=== PATIENT | female | born 1950 | race Caucasian/White ===

== ENCOUNTER 2016-06-19 13:07 | Emergency (ER) | payer OTHER ==
[~2016-06-19] VITALS: Ht 162.6 cm; Wt 75.0 kg
[2016-06-19 13:21] VITALS: BP 128/91
[2016-06-19] MEDS ORDERED: MICARDIS80 MG PO (13:30)
[2016-06-19] MEDS ORDERED: CRESTOR5 MG PO (13:30)
[2016-06-19] MEDS ORDERED: METFORMIN500 M2 PO (13:31)
[2016-06-19 14:12] LABS: INFLUENZA A NONE DETECTED (NONE DETECT); INFLUENZA B NONE DETECTED (NONE DETECT)
[2016-06-19] MEDS ORDERED: AMOXICILLIN500 MG PO (14:39)
[2016-06-19] MEDS ORDERED: TUSSIONEX1 ML PO (14:39)
== END 2016-06-19 14:48 | disposition home or self-care (01) | DRG 203 ==
LOC: ED 13:07
PROVIDERS: Emergency Medicine
DX: J40 Bronchitis, not specified as acute or chronic (principal); R50.9 Fever, unspecified; R05 Cough